=== PATIENT | male | born 1975 ===

== ENCOUNTER 2024-07-14 11:53 | Day surgery (SDC) | payer OTHER ==
[2024-07-11 12:43] LABS: BASO % 0.5 % (0.1-1.2); EOS # 0.26 (0.04-0.54); EOS % 2.9 % (0.7-7.0); HEMATOCRIT 44.9 % (40.1-51.0); HEMOGLOBIN 14.8 g/dL (13.7-17.5); LYMPH # 2.86 (1.18-3.74); LYMPH % 31.4 % (19.3-53.1); MEAN CORPUSCULAR HEMOGLOBIN 28.5 pg (25.6-32.2); MONO # 0.97 (0.24-0.82); MONO % 10.6 % (4.7-12.5); NEUT # 4.94 (1.56-6.13); NEUT % 54.3 % (34.0-71.1); PLATELET COUNT 219 K/uL (163-369); RED BLOOD COUNT 5.19 M/uL (4.63-6.08); RED CELL DISTRIBUTION WIDTH 13.3 % (11.6-14.4)
[2024-07-11 12:46] LABS: PH,URINE 6.5 (5.0-8.0); URINE APPEARANCE Clear; URINE BILIRRUBIN Negative (NEGATIVE); URINE BLOOD Negative; URINE COLOR Yellow; URINE KETONE Negative (NEGATIVE); URINE LEUKOCYTE Negative; URINE NITRATE Negative; URINE PROTEIN Negative (NEGATIVE); URINE UROBILINOGEN 0.2 E.U./dl
[2024-07-11 12:50] LABS: URINE BACTERIA 47.6 uL (0.0-1933); URINE EPITHELIAL CELLS 2.3 uL (0.0-38.8); URINE RBC 2.9 uL (0.0-20.8)
[2024-07-11 12:52] LABS: URINE GLUCOSE >=1000 MG/DL (NEGATIVE); URINE WBC 0.9 uL (0.0-23.2)
[2024-07-11 13:07] LABS: PARTIAL THROMBOPLASTIN TIME 27.7 SECONDS (22.0-34.0); PROTHROMBIN TIME 10.9 SECONDS (9.0-11.5)
[2024-07-11 13:31] VITALS: BP 116/76
[2024-07-11 13:33] LABS: ALBUMIN 3.8 gm/dL (3.4-5.0); BILIRUBIN TOTAL 0.43 mg/dL (0.3-1.2); CALCIUM 9.5 mg/dL (8.5-10.1); CREATININE SERUM 0.9 mg/dL (0.70-1.30); GFR 89.32; GLOBULINA 3.5 G/DL (2.4-3.5); POTASSIUM 4.18 mEq/L (3.5-5.1); TOTAL PROTEIN 7.3 gm/dL (6.4-8.2)
[~2024-07-14] VITALS: Ht 182.9 cm; Wt 120.2 kg
[~2024-07-14 11:53] MED LIST: PEPCID AC20 MG PO; PROTONIX40 MG PO; SIMVASTATIN5 MG; XIGDUO XR 10 M1 EAC1 PO
[2024-07-14] MEDS ORDERED: CEFAZOLIN SODIUM 1,000 MG VIAL ONE (12:03)
[2024-07-14] MEDS ORDERED: DEXAMETHASONE SODIUM PHOSPHATE 4 MG/ML VIAL ONE (12:20)
[2024-07-14] MEDS ORDERED: MORPHINE SULFATE 4 MG/ML VIAL IV ONE (14:50)
== END 2024-07-14 18:00 | disposition home or self-care (01) ==
LOC: SURH 11:53 → CIR.AMB 11:53 → O/R 11:53 → CIR.AMB 18:00
PROVIDERS: ATTEND Surgery
DX: E04.1 Nontoxic single thyroid nodule (principal)